=== PATIENT | female | born 1945 | race Caucasian/White ===

== ENCOUNTER 2025-05-31 13:00 | Outpatient (RCR) | payer MEDICARE, SELFPAY ==
--- NOTE | 2025-03-01 16:31 | PT.OIE ---
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) Visit Care Team Role Provider Type DEIRDRE Sánchez Attending Provider Non-Staff Family Provider Primary Care Provider Referring Provider Specialty: Family Practice Address: [address] [place] [address], [place], [address] Email: Physical Therapy Initial Evaluation PT-OP-A Visit Information Start: 03/01/25 10:16 Freq: Status: Active Protocol: Document 03/01/25 10:45 LFG (Rec: 03/01/25 10:17 LFG [id number]) Out-Patient Physical Therapy Visit Information Visit Information Visit Type Initial Evaluation Visit Start Time 10:45 Visit Stop Time 12:12 Visit Number 1 Evaluation Information Evaluation Date 03/01/25 Precautions Precautions Right shoulder rotator cuff tear suspected PT-OP-B Current Condition Start: 03/01/25 10:16 Freq: Status: Active Protocol: Document 03/01/25 10:45 LFG (Rec: 03/01/25 10:19 LFG [id number]) Current Condition History of Current Condition Onset Date 1999 Current Complaints Lymphedema exacerbation History of Current Lymphedema symptoms started to come on the same year as Condition the mastectomy in 1999, did the whole bandaging/ wrapping including fingers. A couple years after she got a scape on the top of the hand knuckle resulting in elbow pain and then started getting weird, went to [facility] to get checked out which resulted in an infection that she had to be hospitalized for. Since then lymphedema symptoms have been under control until the last couple of years, has had a couple of falls resulting in shoulder problems which she has been doing PT since Oct. Shoulder wasn't getting better and swelling has been worsening. Got her compression garments at [facility] in [place]. 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 Lived in [facility] for 48 yrs, and still have PCP and doctors visit in [place]. Taught to self bandage but has not done it years, or sure if all bandages are in her possession. Has tried minimal self MFD, but reports having complaints of doing it properly and reaching hard to reach areas. Prior Treatments and Post Mastectomy January 2000 Tests Multipe lymph nodes removed Left lumpectomy/breast reconstruction 24' Future Testing and Mild AC joint OA Rotator cuff tendinopathy Treatments Planned Developmental History Developmental Lymphedema History Mild AC joint OA Rotator cuff tendinopathy Rotator cuff tear suspected Treatment Goals Patient/Caregiver Reduce lymphedema swelling to allow to resume PT for Goals her shoulder PT-OP-C Subjective Start: 03/01/25 10:16 Freq: Status: Active Protocol: Document 03/01/25 10:45 LFG (Rec: 03/01/25 10:17 LFG [id number]) OP-PT Subjective Patient Comments Patient Comments Had to stop PT for shoulder due to the swelling in the arm worsening PT-OP-F Manual Assessment Start: 03/01/25 10:16 Freq: Status: Active Protocol: Document 03/01/25 10:45 LFG (Rec: 03/01/25 11:37 LFG [id number]) Manual Assessments Soft Tissue Assessment Soft Tissue Mobility R masectomy scar rigid/stiff Assessment PT-OP-K Range of Motion Start: 03/01/25 10:16 Freq: Status: Active Protocol: Document 03/01/25 10:45 LFG (Rec: 03/01/25 12:03 LFG [id number]) Shoulder Goniometric Range of Motion Shoulder Right Internal Rotation upper lumber, lower thoracic with pain Behind Back (text) Comments General Screening Flexion/Abduction/ER all w/ normal limits Left Internal Rotation mid thoracic scapula Behind Back (text) Comments General Screening Flexion/Abduction/ER all w/ functional limits but all movements cause pain PT-OP-N Lymphedema Start: 03/01/25 10:16 Freq: Status: Active Protocol: Document 03/01/25 10:45 LFG (Rec: 03/01/25 11:10 LFG [id number]) Lymphedema Measurements Upper Extremity Circumference Measurements Right MCP 19.8 cm Dorsum of Hand 20.5 cm Wrist 16.7 cm 5 cm From Wrist 20.5 cm Crease 10 cm From Wrist 23 cm Crease 15 cm From Wrist 26 cm Crease 20 cm From Wrist 29.1 cm Crease 25 cm From Wrist 29 cm Crease 30 cm From Wrist 32.6 cm Crease 35 cm From Wrist 34.8 cm Crease 40 cm From Wrist 37.2 cm Crease 45 cm From Wrist 39.4 cm Crease Elbow Joint 29 cm - 50: 41.2 Left MCP 19.5 cm Dorsum of Hand 20 cm Wrist 17.3 cm 5 cm From Wrist 20.6 cm Crease 10 cm From Wrist 24 cm Crease 15 cm From Wrist 28 cm Crease 20 cm From Wrist 29.9 cm Crease 25 cm From Wrist 29.4 cm Crease 30 cm From Wrist 33 cm Crease 35 cm From Wrist 35.4 cm Crease 40 cm From Wrist 37.5 cm Crease 45 cm From Wrist 38 cm Crease Elbow Joint 29.4 cm - 50: 39.2 PT-OP-Q Treatments Start: 03/01/25 10:16 Freq: Status: Active Protocol: Document 03/01/25 10:45 LFG (Rec: 03/01/25 11:10 LFG [id number]) Manual Therapy Treatment Consent Patient gave verbal Yes consent for manual treatment Lymphedema Treatment Manual Lymphatic Drainage Location R UE lymphedema Lymphedema Wrapping Body Location R UE Materials bandaging Patient Education Lymphedema Pathology Instructed using visual aide, anatomy overview Lymphedema instructed Prevention Lymphedema instructed Precautions Compression Garments instructed, evaluted patient garments Self Manual instructed and given online resource Lymphatic Drainage Sequential as above Lymphedema Exercises PT-OP-T Assessment and Plan Start: 03/01/25 10:16 Freq: Status: Active Protocol: Document 03/01/25 10:45 LFG (Rec: 03/01/25 12:07 LFG [id number]) Physical Therapy Assessment Evaluation Complexity Number of Personal 3 or More Factors/ Comorbidities Number of Body 3 Systems Impaired Clinical Evolving Presentation at Evaluation Impairments Impairments Edema,Functional Mobility,Soft Tissue Mobility Goals Three Impairment impaired soft tissue mobility of mastectomy scar Long-Term Goal (LTG) Improve soft tissue mobility of scar tissue to improve lymphatic flow LTG Duration 05/18/25 Two Impairment lymphedema life impact scale 21% Curb Hop Goal (LTG) Decrease lymphedema life impact scale to no greater than 5% as measure of improved activity tolerance and quality of life LTG Duration 05/18/25 One Impairment lymphedema exacerbation right UE Short Term Goal (STG Patient will be instructed in all aspects of lymphedema ) self-care to include skin care, elevation, self- massage, self-bandaging/compression options, and lymphedema exercises. STG Duration 04/14/25 Long-Term Goal (LTG) Decrease patient?s lymphedema to a stable level (no increase or decrease greater than 1 cm over the course of 1 week), patient to be independent with all aspects of self-care for lymphedema, and will obtain appropriate compression garment for lymphedema management in the home. LTG Duration 05/18/25 Assessment Summary Assessment Patient presents to PT with long standing history with lymphedema after a post mastectomy 00' and having several lymph nodes removed. Lymphedema sxs were under control up until recently after experiencing some falls and having a suspect R rotator cuff tear that she was receiving PT for until lymphedema sxs progressively worsened. Circumferential measurement of bilateral UE reveal R UE to be larger than L UE. R mastectomy scar is stiff and rigid and may be contributing in addition to the insufficient lymphatic drainage. Patient was introduced to some MLD and finished the session with bandaging. Recommend remeasuring circumferences of bilateral UE's, working of scar tissue mobility and continuing MLD. Treatment plan will consist of complete decongestive therapy (CDT). POC discussed with patient and she was in agreement. Physical Therapy Plan Frequency and Duration Frequency of 20 Treatment Duration of 12 treatment (weeks) Plan of Care Start 03/01/25 Date Plan of Care End 05/18/25 Date Therapeutic Interventions Therapeutic Home Exercise Program,Lymphedema Management,Manual Interventions Therapy,Patient/Caregiver Education,Self-Care/Home Management,Soft Tissue Mobilization,Therapeutic Activities,Therapeutic Exercises Modalities Vasopneumatic Devices Next Visit Focus/Plan Next Note Type Treatment Note Next Visit Plan Continue complete decongestive therapy (CDT). Do trial with pneaumatic sequential pump
--- NOTE | 2025-03-01 16:32 | PT.OPPOC ---
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) Visit Care Team Role Provider Type DEIRDRE Sánchez Attending Provider Non-Staff Family Provider Primary Care Provider Referring Provider Specialty: Family Practice Address: [address] [place] [address], [id number] Email: Plan Of Care PT-OP-B Current Condition Start: 03/01/25 10:16 Freq: Status: Active Protocol: Document 03/01/25 10:45 LFG (Rec: 03/01/25 10:19 LFG [id number]) Current Condition History of Current Condition Onset Date 1999 Current Complaints Lymphedema exacerbation History of Current Lymphedema symptoms started to come on the same year as Condition the mastectomy in 1999, did the whole bandaging/ wrapping including fingers. A couple years after she got a scape on the top of the hand knuckle resulting in elbow pain and then started getting weird, went to [facility] to get checked out which resulted in an infection that she had to be hospitalized for. Since then lymphedema symptoms have been under control until the last couple of years, has had a couple of falls resulting in shoulder problems which she has been doing PT since Oct. Shoulder wasn't getting better and swelling has been worsening. Got her compression garments at [facility] in [place]. 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 Lived in [facility] for 48 yrs, and still have PCP and doctors visit in [place]. Taught to self bandage but has not done it years, or sure if all bandages are in her possession. Has tried minimal self MFD, but reports having complaints of doing it properly and reaching hard to reach areas. Prior Treatments and Post Mastectomy January 2000 Tests Multipe lymph nodes removed Left lumpectomy/breast reconstruction ' Future Testing and Mild AC joint OA Rotator cuff tendinopathy Treatments Planned Developmental History Developmental Lymphedema History Mild AC joint OA Rotator cuff tendinopathy Rotator cuff tear suspected Treatment Goals Patient/Caregiver Reduce lymphedema swelling to allow to resume PT for Goals her shoulder PT-OP-T Assessment and Plan Start: 03/01/25 10:16 Freq: Status: Active Protocol: Document 03/01/25 10:45 LFG (Rec: 03/01/25 12:07 LFG [id number]) Physical Therapy Assessment Evaluation Complexity Number of Personal 3 or More Factors/ Comorbidities Number of Body 3 Systems Impaired Clinical Evolving Presentation at Evaluation Impairments Impairments Edema,Functional Mobility,Soft Tissue Mobility Goals Three Impairment impaired soft tissue mobility of mastectomy scar Franchise Field Consultant Goal (LTG) Improve soft tissue mobility of scar tissue to improve lymphatic flow LTG Duration 05/18/25 Two Impairment lymphedema life impact scale 21% Franchise Field Consultant Goal (LTG) Decrease lymphedema life impact scale to no greater than 5% as measure of improved activity tolerance and quality of life LTG Duration 05/18/25 One Impairment lymphedema exacerbation right UE Short Term Goal (STG Patient will be instructed in all aspects of lymphedema ) self-care to include skin care, elevation, self- massage, self-bandaging/compression options, and lymphedema exercises. STG Duration 04/14/25 Franchise Field Consultant Goal (LTG) Decrease patient?s lymphedema to a stable level (no increase or decrease greater than 1 cm over the course of 1 week), patient to be independent with all aspects of self-care for lymphedema, and will obtain appropriate compression garment for lymphedema management in the home. LTG Duration 05/18/25 Assessment Summary Assessment Patient presents to PT with long standing history with lymphedema after a post mastectomy 00' and having several lymph nodes removed. Lymphedema sxs were under control up until recently after experiencing some falls and having a suspect R rotator cuff tear that she was receiving PT for until lymphedema sxs progressively worsened. Circumferential measurement of bilateral UE reveal R UE to be larger than L UE. R mastectomy scar is stiff and rigid and may be contributing in addition to the insufficient lymphatic drainage. Patient was introduced to some MLD and finished the session with bandaging. Recommend remeasuring circumferences of bilateral UE's, working of scar tissue mobility and continuing MLD. Treatment plan will consist of complete decongestive therapy (CDT). POC discussed with patient and she was in agreement. Physical Therapy Plan Frequency and Duration Frequency of 20 Treatment Duration of 12 treatment (weeks) Plan of Care Start 03/01/25 Date Plan of Care End 05/18/25 Date Therapeutic Interventions Therapeutic Home Exercise Program,Lymphedema Management,Manual Interventions Therapy,Patient/Caregiver Education,Self-Care/Home Management,Soft Tissue Mobilization,Therapeutic Activities,Therapeutic Exercises Modalities Vasopneumatic Devices Next Visit Focus/Plan Next Note Type Treatment Note Next Visit Plan Continue complete decongestive therapy (CDT). Do trial with pneaumatic sequential pump Plan of Care Dates Plan of Care Start Date 03/01/25 Plan of Care End Date 05/18/25 Electronically Signed by: Anshul Gonzales, PT 03/01/25 [id number] If you are in agreement with this Plan of Care, please return a signed and dated copy. I have reviewed this Plan of Care and certify that the skilled therapy services above are required to meet the patient?s needs. Physician Signature Date Printed Name and Credentials Clinical Instructor Signature Printed Name and Credentials
--- NOTE | 2025-03-03 16:59 | PT.OTN ---
Current Diagnoses Postmastectomy lymphedema syndrome (03/03/25) Physical Therapy Treatment Note PT-OP-A Visit Information Start: 03/01/25 10:16 Freq: Status: Active Protocol: Document 03/03/25 10:45 SAK (Rec: 03/03/25 10:55 SAK Laptop) Out-Patient Physical Therapy Visit Information Visit Information Visit Type Treatment Note Visit Start Time 10:46 Visit Stop Time 12:11 Visit Number 2 Evaluation Information Evaluation Date 03/01/25 Precautions Precautions Right shoulder rotator cuff tear suspected PT-OP-B Current Condition Start: 03/01/25 10:16 Freq: Status: Active Protocol: Document 03/03/25 10:45 SAK (Rec: 03/03/25 10:55 SAK Laptop) Current Condition History of Current Condition Onset Date 1999 Current Complaints Lymphedema exacerbation History of Current Lymphedema symptoms started to come on the same year as Condition the mastectomy in 1999, did the whole bandaging/ wrapping including fingers. A couple years after she got a scape on the top of the hand knuckle resulting in elbow pain and then started getting weird, went to [facility] to get checked out which resulted in an infection that she had to be hospitalized for. Since then lymphedema symptoms have been under control until the last couple of years, has had a couple of falls resulting in shoulder problems which she has been doing PT since Oct. Shoulder wasn't getting better and swelling has been worsening. Got her compression garments at [facility] in [place]. 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 Lived in [facility] for 48 yrs, and still have PCP and doctors visit in [place]. Taught to self bandage but has not done it years, or sure if all bandages are in her possession. Has tried minimal self MFD, but reports having complaints of doing it properly and reaching hard to reach areas. Lymphedema evident right UE, right subaxillary region and lateral and posterior trunk. Prior Treatments and Post Mastectomy January 2000 Tests Multipe lymph nodes removed Left lumpectomy/breast reconstruction 24' Future Testing and Mild AC joint OA Rotator cuff tendinopathy Treatments Planned Developmental History Developmental Lymphedema History Mild AC joint OA Rotator cuff tendinopathy Rotator cuff tear suspected Treatment Goals Patient/Caregiver Reduce lymphedema swelling to allow to resume PT for Goals her shoulder PT-OP-C Subjective Start: 03/01/25 10:16 Freq: Status: Active Protocol: Document 03/03/25 10:45 SAK (Rec: 03/03/25 11:04 SAK Laptop) OP-PT Subjective Patient Comments Patient Comments Left bandaging on 23 hrs, some soreness at elbow, felt size reduced. Bandaged self, not as effective. Has appointment with Bryon Flowers, agreed to go to [facility] same day for remeasuring/fitting for new garments (current 5 months old). PT-OP-F Manual Assessment Start: 03/01/25 10:16 Freq: Status: Active Protocol: Document 03/01/25 10:45 LFG (Rec: 03/01/25 11:37 LFG [id number]) Manual Assessments Soft Tissue Assessment Soft Tissue Mobility R masectomy scar rigid/stiff Assessment PT-OP-K Range of Motion Start: 03/01/25 10:16 Freq: Status: Active Protocol: Document 03/01/25 10:45 LFG (Rec: 03/01/25 12:03 LFG [id number]) Shoulder Goniometric Range of Motion Shoulder Right Internal Rotation upper lumber, lower thoracic with pain Behind Back (text) Comments General Screening Flexion/Abduction/ER all w/ normal limits Left Internal Rotation mid thoracic scapula Behind Back (text) Comments General Screening Flexion/Abduction/ER all w/ functional limits but all movements cause pain PT-OP-N Lymphedema Start: 03/01/25 10:16 Freq: Status: Active Protocol: Document 03/03/25 10:45 SAK (Rec: 03/03/25 11:02 SAK Laptop) Lymphedema Measurements Upper Extremity Circumference Measurements Right MCP 19.7 cm Dorsum of Hand 20.8 cm Wrist 17.8 cm 5 cm From Wrist 20.8 cm Crease 10 cm From Wrist 23.2 cm Crease 15 cm From Wrist 27 cm Crease 20 cm From Wrist 29.2 cm Crease 25 cm From Wrist 29 cm Crease 30 cm From Wrist 33 cm Crease 35 cm From Wrist 35.2 cm Crease 40 cm From Wrist 37 cm Crease Elbow Joint 29 cm - 50: 38 PT-OP-Q Treatments Start: 03/01/25 10:16 Freq: Status: Active Protocol: Document 03/01/25 10:45 LFG (Rec: 03/01/25 11:10 LFG [id number]) Manual Therapy Treatment Consent Patient gave verbal Yes consent for manual treatment Lymphedema Treatment Manual Lymphatic Drainage Location R UE lymphedema Lymphedema Wrapping Body Location R UE Materials bandaging Patient Education Lymphedema Pathology Instructed using visual aide, anatomy overview Lymphedema instructed Prevention Lymphedema instructed Precautions Compression Garments instructed, evaluted patient garments Self Manual instructed and given online resource Lymphatic Drainage Sequential as above Lymphedema Exercises PT-OP-T Assessment and Plan Start: 03/01/25 10:16 Freq: Status: Active Protocol: Document 03/03/25 10:45 SAK (Rec: 03/03/25 10:55 SAK Laptop) Physical Therapy Assessment Impairments Impairments Edema,Functional Mobility,Soft Tissue Mobility Goals Three Impairment impaired soft tissue mobility of mastectomy scar Diesel Bus Mechanic Goal (LTG) Improve soft tissue mobility of scar tissue to improve lymphatic flow LTG Duration 05/18/25 Two Impairment lymphedema life impact scale 21% Diesel Bus Mechanic Goal (LTG) Decrease lymphedema life impact scale to no greater than 5% as measure of improved activity tolerance and quality of life LTG Duration 05/18/25 One Impairment lymphedema exacerbation right UE Short Term Goal (STG Patient will be instructed in all aspects of lymphedema ) self-care to include skin care, elevation, self- massage, self-bandaging/compression options, and lymphedema exercises. STG Duration 04/14/25 Diesel Bus Mechanic Goal (LTG) Decrease patient?s lymphedema to a stable level (no increase or decrease greater than 1 cm over the course of 1 week), patient to be independent with all aspects of self-care for lymphedema, and will obtain appropriate compression garment for lymphedema management in the home. LTG Duration 05/18/25 Assessment Summary Assessment Patient not able to bandage adequately for reduction first trial, will continue to practice. Reported decrease in edema after PT bandaging but after self bandaging no dec, some inc. Continued CDT today including trial Airos 6 pneumatic compression pump with Arm Plus garment which includes trunk due to patient subaxillary edema. Reviewed video self MLD with patient with cues for technique during sequential pneumatic pump. Physical Therapy Plan Frequency and Duration Frequency of 20 Treatment Duration of 12 treatment (weeks) Plan of Care Start 03/01/25 Date Plan of Care End 05/18/25 Date Therapeutic Interventions Therapeutic Home Exercise Program,Lymphedema Management,Manual Interventions Therapy,Patient/Caregiver Education,Self-Care/Home Management,Soft Tissue Mobilization,Therapeutic Activities,Therapeutic Exercises Modalities Vasopneumatic Devices Next Visit Focus/Plan Next Note Type Treatment Note Next Visit Plan Continue complete decongestive therapy (CDT), bandaging end of treatment. Review HEP (modified due to shoulder pain and dysfunction from likely RC tear).
--- NOTE | 2025-03-09 12:27 | PT.OTN ---
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) Physical Therapy Treatment Note PT-OP-A Visit Information Start: 03/01/25 10:16 Freq: Status: Active Protocol: Document 03/09/25 10:28 AB (Rec: 03/09/25 11:08 AB [id number]) Out-Patient Physical Therapy Visit Information Visit Information Visit Type Treatment Note Visit Start Time 10:46 Visit Stop Time 12:22 Visit Number 3 Number of HELPER DRIVER Visits 1 Evaluation Information Evaluation Date 03/01/25 Precautions Precautions Right shoulder rotator cuff tear suspected PT-OP-B Current Condition Start: 03/01/25 10:16 Freq: Status: Active Protocol: Document 03/03/25 10:45 SAK (Rec: 03/03/25 10:55 SAK Laptop) Current Condition History of Current Condition Onset Date 1999 Current Complaints Lymphedema exacerbation History of Current Lymphedema symptoms started to come on the same year as Condition the mastectomy in 1999, did the whole bandaging/ wrapping including fingers. A couple years after she got a scape on the top of the hand knuckle resulting in elbow pain and then started getting weird, went to [facility] to get checked out which resulted in an infection that she had to be hospitalized for. Since then lymphedema symptoms have been under control until the last couple of years, has had a couple of falls resulting in shoulder problems which she has been doing PT since Oct. Shoulder wasn't getting better and swelling has been worsening. Got her compression garments at [facility] [place]. 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 Lived in [facility] for 48 yrs, and still have PCP and doctors visit in [place]. Taught to self bandage but has not done it years, or sure if all bandages are in her possession. Has tried minimal self MFD, but reports having complaints of doing it properly and reaching hard to reach areas. Lymphedema evident right UE, right subaxillary region and lateral and posterior trunk. Prior Treatments and Post Mastectomy January 2000 Tests Multipe lymph nodes removed Left lumpectomy/breast reconstruction 24' Future Testing and Mild AC joint OA Rotator cuff tendinopathy Treatments Planned Developmental History Developmental Lymphedema History Mild AC joint OA Rotator cuff tendinopathy Rotator cuff tear suspected Treatment Goals Patient/Caregiver Reduce lymphedema swelling to allow to resume PT for Goals her shoulder PT-OP-C Subjective Start: 03/01/25 10:16 Freq: Status: Active Protocol: Document 03/09/25 10:28 AB (Rec: 03/09/25 11:08 AB [id number]) OP-PT Subjective Patient Comments Patient Comments Patient reports she is not doing well with bandaging, reports bunching at wrist, the loose proximal forearm. Patient reports Appt for new garments is next Friday. PT-OP-F Manual Assessment Start: 03/01/25 10:16 Freq: Status: Active Protocol: Document 03/01/25 10:45 LFG (Rec: 03/01/25 11:37 LFG [id number]) Manual Assessments Soft Tissue Assessment Soft Tissue Mobility R masectomy scar rigid/stiff Assessment PT-OP-K Range of Motion Start: 03/01/25 10:16 Freq: Status: Active Protocol: Document 03/01/25 10:45 LFG (Rec: 03/01/25 12:03 LFG [id number]) Shoulder Goniometric Range of Motion Shoulder Right Internal Rotation upper lumber, lower thoracic with pain Behind Back (text) Comments General Screening Flexion/Abduction/ER all w/ normal limits Left Internal Rotation mid thoracic scapula Behind Back (text) Comments General Screening Flexion/Abduction/ER all w/ functional limits but all movements cause pain PT-OP-N Lymphedema Start: 03/01/25 10:16 Freq: Status: Active Protocol: Document 03/09/25 10:28 AB (Rec: 03/09/25 11:08 AB [id number]) Lymphedema Measurements Upper Extremity Circumference Measurements Right MCP 19.5 cm Dorsum of Hand 21.6 cm Wrist 17.2 cm 5 cm From Wrist 19.8 cm Crease 10 cm From Wrist 23.2 cm Crease 15 cm From Wrist 27.2 cm Crease 20 cm From Wrist 29.4 cm Crease 25 cm From Wrist 29.1 cm Crease 30 cm From Wrist 33.2 cm Crease 35 cm From Wrist 36.2 cm Crease 40 cm From Wrist 37.3 cm Crease 45 cm From Wrist 39.5 cm Crease Elbow Joint 29.2 cm - 50 cm 41.2 cm PT-OP-Q Treatments Start: 03/01/25 10:16 Freq: Status: Active Protocol: Document 03/09/25 10:28 AB (Rec: 03/09/25 11:08 AB [id number]) Lymphedema Treatment Manual Lymphatic Drainage Location R UE lymphedema all drains, highways ant and post and R UE ant and post Comments also cleared axillary drain end of MLD Lymphedema Wrapping Body Location R UE Materials bandaging Sequential Lymphedema Exercises Location breathing from diaphragm, gripping, scap squeeze, X 8 Comments isomet flex and abd R sh X 3 9 very gentle and shoulder shrug and depression X 5 bilaterally PT-OP-R Modalities Start: 03/01/25 10:16 Freq: Status: Active Protocol: Document 03/09/25 10:28 AB (Rec: 03/09/25 11:08 AB [id number]) Compression Pump Treatment Treatment Location R UE Treatment Comments Airos 6 pneumatic compression pump with Arm Plus garment which includes trunk X 11 min pressure to 40, Patient reports UE became uncomfortable at 11 min PT-OP-T Assessment and Plan Start: 03/01/25 10:16 Freq: Status: Active Protocol: Document 03/09/25 10:28 AB (Rec: 03/09/25 11:08 [id number]) Physical Therapy Assessment Goals Three Impairment impaired soft tissue mobility of mastectomy scar Automobile Detailer Goal (LTG) Improve soft tissue mobility of scar tissue to improve lymphatic flow LTG Duration 05/18/25 Two Impairment lymphedema life impact scale 21% [facility] Goal (LTG) Decrease lymphedema life impact scale to no greater than 5% as measure of improved activity tolerance and quality of life LTG Duration 05/18/25 One Impairment lymphedema exacerbation right UE Short Term Goal (STG Patient will be instructed in all aspects of lymphedema ) self-care to include skin care, elevation, self- massage, self-bandaging/compression options, and lymphedema exercises. STG Duration 04/14/25 [facility] Goal (LTG) Decrease patient?s lymphedema to a stable level (no increase or decrease greater than 1 cm over the course of 1 week), patient to be independent with all aspects of self-care for lymphedema, and will obtain appropriate compression garment for lymphedema management in the home. LTG Duration 05/18/25 Assessment Summary Assessment Decreased measures at MCP and 5 cm from wrist, increased or same for all other measures. Good shannan to gentle shoulder isometrics. Pump time limited by UE pain R UE. Physical Therapy Plan Frequency and Duration Frequency of 20 Treatment Duration of 12 treatment (weeks) Plan of Care Start 03/01/25 Date Plan of Care End 05/18/25 Date Next Visit Focus/Plan Next Note Type Treatment Note Next Visit Plan Continue complete decongestive therapy (CDT), bandaging end of treatment. Review HEP (modified due to shoulder pain and dysfunction from likely RC tear).
--- NOTE | 2025-03-11 12:28 | PT.OTN ---
Current Diagnoses Postmastectomy lymphedema syndrome (03/11/25) Physical Therapy Treatment Note PT-OP-A Visit Information Start: 03/01/25 10:16 Freq: Status: Active Protocol: Document 03/11/25 10:47 AB (Rec: 03/11/25 11:05 AB [id number]) Out-Patient Physical Therapy Visit Information Visit Information Visit Type Treatment Note Visit Start Time 10:47 Visit Stop Time 12:20 Visit Number 4 Number of ROVING TESTER [employer] Visits 1 Evaluation Information Evaluation Date 03/01/25 Precautions Precautions Right shoulder rotator cuff tear suspected PT-OP-B Current Condition Start: 03/01/25 10:16 Freq: Status: Active Protocol: Document 03/03/25 10:45 SAK (Rec: 03/03/25 10:55 SAK Laptop) Current Condition History of Current Condition Onset Date 1999 Current Complaints Lymphedema exacerbation History of Current Lymphedema symptoms started to come on the same year as Condition the mastectomy in 1999, did the whole bandaging/ wrapping including fingers. A couple years after she got a scape on the top of the hand knuckle resulting in elbow pain and then started getting weird, went to [facility] to get checked out which resulted in an infection that she had to be hospitalized for. Since then lymphedema symptoms have been under control until the last couple of years, has had a couple of falls resulting in shoulder problems which she has been doing PT since Oct. Shoulder wasn't getting better and swelling has been worsening. Got her compression garments at [facility] in [place]. 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 Lived in [facility] for 48 yrs, and still have PCP and doctors visit in [place]. Taught to self bandage but has not done it years, or sure if all bandages are in her possession. Has tried minimal self MFD, but reports having complaints of doing it properly and reaching hard to reach areas. Lymphedema evident right UE, right subaxillary region and lateral and posterior trunk. Prior Treatments and Post Mastectomy January 2000 Tests Multipe lymph nodes removed Left lumpectomy/breast reconstruction 24' Future Testing and Mild AC joint OA Rotator cuff tendinopathy Treatments Planned Developmental History Developmental Lymphedema History Mild AC joint OA Rotator cuff tendinopathy Rotator cuff tear suspected Treatment Goals Patient/Caregiver Reduce lymphedema swelling to allow to resume PT for Goals her shoulder PT-OP-C Subjective Start: 03/01/25 10:16 Freq: Status: Active Protocol: Document 03/11/25 10:47 AB (Rec: 03/11/25 11:05 AB [id number]) OP-PT Subjective Patient Comments Patient Comments Patient reports finger bandaging was too tight had to remove about 10:00, reports it was looking a little purply. PT-OP-F Manual Assessment Start: 03/01/25 10:16 Freq: Status: Active Protocol: Document 03/01/25 10:45 LFG (Rec: 03/01/25 11:37 LFG [id number]) Manual Assessments Soft Tissue Assessment Soft Tissue Mobility R masectomy scar rigid/stiff Assessment PT-OP-K Range of Motion Start: 03/01/25 10:16 Freq: Status: Active Protocol: Document 03/01/25 10:45 LFG (Rec: 03/01/25 12:03 LFG [id number]) Shoulder Goniometric Range of Motion Shoulder Right Internal Rotation upper lumber, lower thoracic with pain Behind Back (text) Comments General Screening Flexion/Abduction/ER all w/ normal limits Left Internal Rotation mid thoracic scapula Behind Back (text) Comments General Screening Flexion/Abduction/ER all w/ functional limits but all movements cause pain PT-OP-N Lymphedema Start: 03/01/25 10:16 Freq: Status: Active Protocol: Document 03/11/25 10:47 AB (Rec: 03/11/25 11:05 AB [id number]) Lymphedema Measurements Upper Extremity Circumference Measurements Right MCP 19.4 cm Dorsum of Hand 19.9 cm Wrist 16.5 cm 5 cm From Wrist 19.8 cm Crease 10 cm From Wrist 23.1 cm Crease 15 cm From Wrist 26.6 cm Crease 20 cm From Wrist 29.4 cm Crease 25 cm From Wrist 29.2 cm Crease 30 cm From Wrist 32.6 cm Crease 35 cm From Wrist 36.1 cm Crease 40 cm From Wrist 36.5 cm Crease 45 cm From Wrist 38.6 cm Crease Elbow Joint 28.6 cm - 50 cm 39.9 cm PT-OP-Q Treatments Start: 03/01/25 10:16 Freq: Status: Active Protocol: Document 03/11/25 10:47 AB (Rec: 03/11/25 11:05 [id number]) Lymphedema Treatment Manual Lymphatic Drainage Location R UE lymphedema all drains, highways ant and post and R UE ant and post Lymphedema Wrapping Body Location R UE Materials bandaging fingers, artiflex, 4 cm 6 cm and 11 cm Comprilan, pad for post hand into wrist area. Sequential Lymphedema Exercises Location breathing from diaphragm, gripping, scap squeeze, X 8, Yulissa flex ext, abd Comments X 10 Patient Education Lymphedema Pathology Instructed using visual aide, anatomy overview Lymphedema instructed Prevention Lymphedema instructed Precautions Compression Garments instructed, evaluted patient garments Self Manual instructed and given online resource Lymphatic Drainage Sequential as above Lymphedema Exercises PT-OP-R Modalities Start: 03/01/25 10:16 Freq: Status: Active Protocol: Document 03/11/25 10:47 AB (Rec: 03/11/25 11:05 [id number]) Compression Pump Treatment Treatment Location R UE Treatment Comments Airos 6 pneumatic compression pump with Arm Plus garment which includes trunk X 15 min pressure to 35 PT-OP-T Assessment and Plan Start: 03/01/25 10:16 Freq: Status: Active Protocol: Document 03/11/25 10:47 AB (Rec: 03/11/25 11:05 [id number]) Physical Therapy Assessment Goals Three Impairment impaired soft tissue mobility of mastectomy scar Primary Teaching Assistant Goal (LTG) Improve soft tissue mobility of scar tissue to improve lymphatic flow LTG Duration 05/18/25 Two Impairment lymphedema life impact scale 21% Jail Goal (LTG) Decrease lymphedema life impact scale to no greater than 5% as measure of improved activity tolerance and quality of life LTG Duration 05/18/25 One Impairment lymphedema exacerbation right UE Short Term Goal (STG Patient will be instructed in all aspects of lymphedema ) self-care to include skin care, elevation, self- massage, self-bandaging/compression options, and lymphedema exercises. STG Duration 04/14/25 Jail Goal (LTG) Decrease patient?s lymphedema to a stable level (no increase or decrease greater than 1 cm over the course of 1 week), patient to be independent with all aspects of self-care for lymphedema, and will obtain appropriate compression garment for lymphedema management in the home. LTG Duration 05/18/25 Assessment Summary Assessment Patient into session with mostly improved measures R UE one inc in one measurement of one MM. and 4 areas of same measurements. Good shannan to pump at 35 for X 15 min Physical Therapy Plan Frequency and Duration Frequency of 20 Treatment Duration of 12 treatment (weeks) Plan of Care Start 03/01/25 Date Plan of Care End 05/18/25 Date Next Visit Focus/Plan Next Note Type Treatment Note Next Visit Plan Continue complete decongestive therapy (CDT), bandaging end of treatment. Review HEP (modified due to shoulder pain and dysfunction from likely RC tear).
--- NOTE | 2025-03-30 10:15 | PT.OTN ---
Current Diagnoses Postmastectomy lymphedema syndrome (03/30/25) Physical Therapy Treatment Note PT-OP-A Visit Information Start: 03/01/25 10:16 Freq: Status: Active Protocol: Document 03/30/25 07:22 AB (Rec: 03/30/25 07:55 AB [id number]) Out-Patient Physical Therapy Visit Information Visit Information Visit Type Treatment Note Visit Start Time 07:35 Visit Stop Time 09:05 Visit Number 5 Number of SHIRT MAKER Visits 3 Evaluation Information Evaluation Date 03/01/25 Precautions Precautions Right shoulder rotator cuff tear suspected PT-OP-B Current Condition Start: 03/01/25 10:16 Freq: Status: Active Protocol: Document 03/03/25 10:45 SAK (Rec: 03/03/25 10:55 SAK Laptop) Current Condition History of Current Condition Onset Date 1999 Current Complaints Lymphedema exacerbation History of Current Lymphedema symptoms started to come on the same year as Condition the mastectomy in 1999, did the whole bandaging/ wrapping including fingers. A couple years after she got a scape on the top of the hand knuckle resulting in elbow pain and then started getting weird, went to [facility] to get checked out which resulted in an infection that she had to be hospitalized for. Since then lymphedema symptoms have been under control until the last couple of years, has had a couple of falls resulting in shoulder problems which she has been doing PT since Oct. Shoulder wasn't getting better and swelling has been worsening. Got her compression garments at [facility] in [place]. 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 Lived in [facility] for 48 yrs, and still have PCP and doctors visit in [place]. Taught to self bandage but has not done it years, or sure if all bandages are in her possession. Has tried minimal self MFD, but reports having complaints of doing it properly and reaching hard to reach areas. Lymphedema evident right UE, right subaxillary region and lateral and posterior trunk. Prior Treatments and Post Mastectomy January 2000 Tests Multipe lymph nodes removed Left lumpectomy/breast reconstruction 24' Future Testing and Mild AC joint OA Rotator cuff tendinopathy Treatments Planned Developmental History Developmental Lymphedema History Mild AC joint OA Rotator cuff tendinopathy Rotator cuff tear suspected Treatment Goals Patient/Caregiver Reduce lymphedema swelling to allow to resume PT for Goals her shoulder PT-OP-C Subjective Start: 03/01/25 10:16 Freq: Status: Active Protocol: Document 03/30/25 07:22 AB (Rec: 03/30/25 07:55 AB [id number]) OP-PT Subjective Patient Comments Patient Comments Patient reports wrapping off and on, thinks it is going pretty well. Patient reports the exercises do help, but the shoulder pain is not eliminated PT-OP-F Manual Assessment Start: 03/01/25 10:16 Freq: Status: Active Protocol: Document 03/01/25 10:45 LFG (Rec: 03/01/25 11:37 LFG [id number]) Manual Assessments Soft Tissue Assessment Soft Tissue Mobility R masectomy scar rigid/stiff Assessment PT-OP-K Range of Motion Start: 03/01/25 10:16 Freq: Status: Active Protocol: Document 03/01/25 10:45 LFG (Rec: 03/01/25 12:03 LFG [id number]) Shoulder Goniometric Range of Motion Shoulder Right Internal Rotation upper lumber, lower thoracic with pain Behind Back (text) Comments General Screening Flexion/Abduction/ER all w/ normal limits Left Internal Rotation mid thoracic scapula Behind Back (text) Comments General Screening Flexion/Abduction/ER all w/ functional limits but all movements cause pain PT-OP-N Lymphedema Start: 03/01/25 10:16 Freq: Status: Active Protocol: Document 03/30/25 07:22 AB (Rec: 03/30/25 07:55 AB [id number]) Lymphedema Measurements Upper Extremity Circumference Measurements Right MCP 19.2 cm Dorsum of Hand 20.6 cm Wrist 16.5 cm 5 cm From Wrist 19.6 cm Crease 10 cm From Wrist 23.1 cm Crease 15 cm From Wrist 27.1 cm Crease 20 cm From Wrist 29.4 cm Crease 25 cm From Wrist 29.4 cm Crease 30 cm From Wrist 31.6 cm Crease 35 cm From Wrist 34.4 cm Crease 40 cm From Wrist 36.6 cm Crease 45 cm From Wrist 39 cm Crease Elbow Joint 28.9 cm - 50 cm 39.5 cm PT-OP-Q Treatments Start: 03/01/25 10:16 Freq: Status: Active Protocol: Document 03/30/25 07:22 AB (Rec: 03/30/25 07:55 AB [id number]) Manual Therapy Treatment Consent Patient gave verbal Yes consent for manual treatment Soft Tissue Mobilization R pec Mobilization Type Cross-Friction,Rolling Intensity/Depth Moderate Body Position Hooklying Lymphedema Treatment Manual Lymphatic Drainage Location R UE lymphedema all drains, highways ant and post and R UE ant and post Lymphedema Wrapping Body Location R UE Materials bandaging fingers, hand to axilla artiflex, 4 cm 6 cm and 11 cm Comprilan, pad for post hand into wrist area. Sequential Lymphedema Exercises Location breathing from diaphragm, gripping, scap squeeze, X 10 , Yulissa flex ext, abd Comments X 10 X2 for scap squeeze, shoulder isomet ext abnd and flex, finger abd and add PT-OP-R Modalities Start: 03/01/25 10:16 Freq: Status: Active Protocol: Document 03/30/25 07:22 AB (Rec: 03/30/25 07:55 AB [id number]) Compression Pump Treatment Treatment Location R UE Treatment Comments Airos 6 pneumatic compression pump with Arm Plus garment which includes trunk X 10 min pressure to 35 PT-OP-T Assessment and Plan Start: 03/01/25 10:16 Freq: Status: Active Protocol: Document 03/30/25 07:22 AB (Rec: 03/30/25 07:55 AB [id number]) Physical Therapy Assessment Goals Three Impairment impaired soft tissue mobility of mastectomy scar Stable Helper Goal (LTG) Improve soft tissue mobility of scar tissue to improve lymphatic flow LTG Duration 05/18/25 Two Impairment lymphedema life impact scale 21% Stable Helper Goal (LTG) Decrease lymphedema life impact scale to no greater than 5% as measure of improved activity tolerance and quality of life LTG Duration 05/18/25 One Impairment lymphedema exacerbation right UE Short Term Goal (STG Patient will be instructed in all aspects of lymphedema ) self-care to include skin care, elevation, self- massage, self-bandaging/compression options, and lymphedema exercises. STG Duration 04/14/25 [facility] Goal (LTG) Decrease patient?s lymphedema to a stable level (no increase or decrease greater than 1 cm over the course of 1 week), patient to be independent with all aspects of self-care for lymphedema, and will obtain appropriate compression garment for lymphedema management in the home. LTG Duration 05/18/25 Assessment Summary Assessment R UE 6 areas with increased measurements 5 areas with decreased measurements, the rest with no change R UE. Patient ed to increase frequency of bandaging. R pec stiffness persists. Physical Therapy Plan Frequency and Duration Frequency of 20 Treatment Duration of 12 treatment (weeks) Plan of Care Start 03/01/25 Date Plan of Care End 05/18/25 Date Next Visit Focus/Plan Next Note Type Progress Note Next Visit Plan Continue complete decongestive therapy (CDT), bandaging end of treatment. Review HEP (modified due to shoulder pain and dysfunction from likely RC tear). Dec pump pressure to 30 due to patient reported discomfort as pump sleeve was being removed last session.
--- NOTE | 2025-04-01 10:50 | PT.OTN ---
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) Physical Therapy Treatment Note PT-OP-A Visit Information Start: 03/01/25 10:16 Freq: Status: Active Protocol: Document 04/01/25 09:03 AB (Rec: 04/01/25 09:49 AB [id number]) Out-Patient Physical Therapy Visit Information Visit Information Visit Type Treatment Note Visit Start Time 09:03 Visit Stop Time 10:37 Visit Number 6 Number of SALES EXPERT Visits 4 PT-OP-B Current Condition Start: 03/01/25 10:16 Freq: Status: Active Protocol: Document 03/03/25 10:45 SAK (Rec: 03/03/25 10:55 SAK Laptop) Current Condition History of Current Condition Onset Date 1999 Current Complaints Lymphedema exacerbation History of Current Lymphedema symptoms started to come on the same year as Condition the mastectomy in 1999, did the whole bandaging/ wrapping including fingers. A couple years after she got a scape on the top of the hand knuckle resulting in elbow pain and then started getting weird, went to [facility] to get checked out which resulted in an infection that she had to be hospitalized for. Since then lymphedema symptoms have been under control until the last couple of years, has had a couple of falls resulting in shoulder problems which she has been doing PT since Oct. Shoulder wasn't getting better and swelling has been worsening. Got her compression garments at [facility] in [place]. 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 Lived in [facility] for 48 yrs, and still have PCP and doctors visit in [place]. Taught to self bandage but has not done it years, or sure if all bandages are in her possession. Has tried minimal self MFD, but reports having complaints of doing it properly and reaching hard to reach areas. Lymphedema evident right UE, right subaxillary region and lateral and posterior trunk. Prior Treatments and Post Mastectomy January 2000 Tests Multipe lymph nodes removed Left lumpectomy/breast reconstruction 24' Future Testing and Mild AC joint OA Rotator cuff tendinopathy Treatments Planned Developmental History Developmental Lymphedema History Mild AC joint OA Rotator cuff tendinopathy Rotator cuff tear suspected Treatment Goals Patient/Caregiver Reduce lymphedema swelling to allow to resume PT for Goals her shoulder PT-OP-C Subjective Start: 03/01/25 10:16 Freq: Status: Active Protocol: Document 04/01/25 09:03 AB (Rec: 04/01/25 09:49 AB [id number]) OP-PT Subjective Patient Comments Patient Comments Patient reports increased R UE soreness, gestures to forearm post previous session attributes to the pump. PT-OP-F Manual Assessment Start: 03/01/25 10:16 Freq: Status: Active Protocol: Document 03/01/25 10:45 LFG (Rec: 03/01/25 11:37 LFG [id number]) Manual Assessments Soft Tissue Assessment Soft Tissue Mobility R masectomy scar rigid/stiff Assessment PT-OP-K Range of Motion Start: 03/01/25 10:16 Freq: Status: Active Protocol: Document 03/01/25 10:45 LFG (Rec: 03/01/25 12:03 LFG [id number]) Shoulder Goniometric Range of Motion Shoulder Right Internal Rotation upper lumber, lower thoracic with pain Behind Back (text) Comments General Screening Flexion/Abduction/ER all w/ normal limits Left Internal Rotation mid thoracic scapula Behind Back (text) Comments General Screening Flexion/Abduction/ER all w/ functional limits but all movements cause pain PT-OP-N Lymphedema Start: 03/01/25 10:16 Freq: Status: Active Protocol: Document 04/01/25 09:03 AB (Rec: 04/01/25 09:49 AB [id number]) Lymphedema Measurements Upper Extremity Circumference Measurements Right MCP 19.2 cm Dorsum of Hand 20.6 cm Wrist 16.5 cm 5 cm From Wrist 19.6 cm Crease 10 cm From Wrist 23.3 cm Crease 15 cm From Wrist 26 cm Crease 20 cm From Wrist 29 cm Crease 25 cm From Wrist 28.8 cm Crease 30 cm From Wrist 31.6 cm Crease 35 cm From Wrist 35 cm Crease 40 cm From Wrist 36.4 cm Crease 45 cm From Wrist 38.5 cm Crease Elbow Joint 28.6 cm - 50 cm 38.7 cm PT-OP-Q Treatments Start: 03/01/25 10:16 Freq: Status: Active Protocol: Document 04/01/25 09:03 AB (Rec: 04/01/25 09:49 AB [id number]) Manual Therapy Treatment Consent Patient gave verbal Yes consent for manual treatment Soft Tissue Mobilization R pec Mobilization Type Cross-Friction,Rolling Intensity/Depth Moderate Body Position Hooklying Lymphedema Treatment Manual Lymphatic Drainage Location R UE lymphedema all drains, highways ant and post and R UE ant and post Lymphedema Wrapping Body Location R UE Materials bandaging fingers, hand to axilla artiflex, 4 cm 6 cm and 11 cm Comprilan, pad for post hand into wrist area. Sequential Lymphedema Exercises Location breathing from diaphragm Duration X 15 for scap squeeze shoulder rolls, shoulder isomet ext abd and flex X8 Comments ER and IR X 3 PT-OP-R Modalities Start: 03/01/25 10:16 Freq: Status: Active Protocol: Document 04/01/25 09:03 AB (Rec: 04/01/25 09:49 AB [id number]) Compression Pump Treatment Treatment Location R UE Treatment Comments Airos 6 pneumatic compression pump with Arm Plus garment which includes trunk X 10 min pressure to 30 PT-OP-T Assessment and Plan Start: 03/01/25 10:16 Freq: Status: Active Protocol: Document 04/01/25 09:03 AB (Rec: 04/01/25 09:49 AB [id number]) Physical Therapy Assessment Goals Three Impairment impaired soft tissue mobility of mastectomy scar Squirrel Worker Goal (LTG) Improve soft tissue mobility of scar tissue to improve lymphatic flow LTG Duration 05/18/25 Two Impairment lymphedema life impact scale 21% Squirrel Worker Goal (LTG) Decrease lymphedema life impact scale to no greater than 5% as measure of improved activity tolerance and quality of life LTG Duration 05/18/25 One Impairment lymphedema exacerbation right UE Short Term Goal (STG Patient will be instructed in all aspects of lymphedema ) self-care to include skin care, elevation, self- massage, self-bandaging/compression options, and lymphedema exercises. STG Duration 04/14/25 Squirrel Worker Goal (LTG) Decrease patient?s lymphedema to a stable level (no increase or decrease greater than 1 cm over the course of 1 week), patient to be independent with all aspects of self-care for lymphedema, and will obtain appropriate compression garment for lymphedema management in the home. LTG Duration 05/18/25 Assessment Summary Assessment 6 areas decreased R UE one area increased all other the same. Increased tolerance to shoulder isometrics this session, but isometric IR painful only able to perform very light pressure and very limited reps. Patient ed to attempt band ex ( pt reported having bands, but not doing exercises for shoulder with bands) and if painful to stop and bring bands to next session. Physical Therapy Plan Frequency and Duration Frequency of 20 Treatment Duration of 12 treatment (weeks) Plan of Care Start 03/01/25 Date Plan of Care End 05/18/25 Date Next Visit Focus/Plan Next Note Type Progress Note Next Visit Plan Continue complete decongestive therapy (CDT), bandaging end of treatment. Review HEP (modified due to shoulder pain and dysfunction from likely RC tear). Possibly isometric reactive for shoulder ER and IR if nottolerating shoulder ER and IR with band at home.
--- NOTE | 2025-04-04 12:20 | PT.OTN ---
Current Diagnoses Postmastectomy lymphedema syndrome (04/04/25) Physical Therapy Treatment Note PT-OP-A Visit Information Start: 03/01/25 10:16 Freq: Status: Active Protocol: Document 04/04/25 10:43 SAK (Rec: 04/04/25 11:23 SAK Laptop) Out-Patient Physical Therapy Visit Information Visit Information Visit Type Treatment Note Visit Start Time 10:45 Visit Stop Time 12:15 Visit Number 6 Number of COMPUTER NETWORK AND SYSTEMS ENGINEER Visits 40 Evaluation Information Evaluation Date 03/01/25 Precautions Precautions Right shoulder rotator cuff tear suspected PT-OP-B Current Condition Start: 03/01/25 10:16 Freq: Status: Active Protocol: Document 04/04/25 10:43 SAK (Rec: 04/04/25 11:23 SAK Laptop) Current Condition History of Current Condition Onset Date 1999 Current Complaints Lymphedema exacerbation History of Current Lymphedema symptoms started to come on the same year as Condition the mastectomy in 1999, did the whole bandaging/ wrapping including fingers. A couple years after she got a scape on the top of the hand knuckle resulting in elbow pain and then started getting weird, went to to get checked out which resulted in an infection that she had to be hospitalized for. Since then lymphedema symptoms have been under control until the last couple of years, has had a couple of falls resulting in shoulder problems which she has been doing PT since Oct. Shoulder wasn't getting better and swelling has been worsening. Got her compression garments at [facility] in [place]. 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 Lived in [facility] for 48 yrs, and still have PCP and doctors visit in [place]. Taught to self bandage but has not done it years, or sure if all bandages are in her possession. Has tried minimal self MFD, but reports having complaints of doing it properly and reaching hard to reach areas. Lymphedema evident right UE, right subaxillary region and lateral and posterior trunk. Prior Treatments and Post Mastectomy January 2000 Tests Multipe lymph nodes removed Left lumpectomy/breast reconstruction 24' Future Testing and Mild AC joint OA Rotator cuff tendinopathy Treatments Planned PT-OP-C Subjective Start: 03/01/25 10:16 Freq: Status: Active Protocol: Document 04/04/25 10:43 SAK (Rec: 04/04/25 11:23 SAK Laptop) OP-PT Subjective Patient Comments Patient Comments Ok with pump pressure turned down last session, felt helpful. Progress up and down. Has been trying to bandage more at home, wears compression garments when not bandaged. Currently wearing compression garments that are a little less than 6 months old. Going to go through [email or web address] for new ones. Has had to start taking Methotrexate again, having hot flashes. This Friday nuclear bone scan. Got a prescription for compression garments but needs to contact doctor for more detail. Shoulder pain a little less, doing her exercises. Very interested in getting sequential pneumatic pump to assist with her self management at home. PT-OP-F Manual Assessment Start: 03/01/25 10:16 Freq: Status: Active Protocol: Document 03/01/25 10:45 LFG (Rec: 03/01/25 11:37 LFG [id number]) Manual Assessments Soft Tissue Assessment Soft Tissue Mobility R masectomy scar rigid/stiff Assessment PT-OP-K Range of Motion Start: 03/01/25 10:16 Freq: Status: Active Protocol: Document 03/01/25 10:45 LFG (Rec: 03/01/25 12:03 LFG [id number]) Shoulder Goniometric Range of Motion Shoulder Right Internal Rotation upper lumber, lower thoracic with pain Behind Back (text) Comments General Screening Flexion/Abduction/ER all w/ normal limits Left Internal Rotation mid thoracic scapula Behind Back (text) Comments General Screening Flexion/Abduction/ER all w/ functional limits but all movements cause pain PT-OP-N Lymphedema Start: 03/01/25 10:16 Freq: Status: Active Protocol: Document 04/04/25 10:43 SAK (Rec: 04/04/25 11:23 SAK Laptop) Lymphedema Measurements Upper Extremity Circumference Measurements Right MCP 19.5 cm Dorsum of Hand 19.7 cm Wrist 17.3 cm 5 cm From Wrist 19.6 cm Crease 10 cm From Wrist 23.4 cm Crease 15 cm From Wrist 27.2 cm Crease 20 cm From Wrist 28.8 cm Crease 25 cm From Wrist 28.5 cm Crease 30 cm From Wrist 31.5 cm Crease 35 cm From Wrist 34.2 cm Crease 40 cm From Wrist 35.8 cm Crease 45 cm From Wrist 36.3 cm Crease Elbow Joint 28.5 cm - 50 cm: 36.8 sitting PT-OP-Q Treatments Start: 03/01/25 10:16 Freq: Status: Active Protocol: Document 04/04/25 10:43 [facility] (Rec: 04/04/25 11:23 [facility] Laptop) Manual Therapy Treatment Consent Patient gave verbal Yes consent for manual treatment Soft Tissue Mobilization mastectomy scar Mobilization Type Instrument Assisted,Myofascial Release R pec Mobilization Type Cross-Friction,Rolling Intensity/Depth Moderate Body Position Hooklying Lymphedema Treatment Manual Lymphatic Drainage Location R UE lymphedema all drains, highways ant and post and R UE ant and post Comments supine and sidelying Lymphedema Wrapping Body Location R UE Materials bandaging fingers, hand to axilla artiflex, 4 cm 6 cm and 10 cm Comprilan, pad for post hand into wrist area. Sequential Lymphedema Exercises Location diaphragmatic breathing Duration X 15 for scap squeeze shoulder rolls, shoulder isomet ext abd and flex X8 Comments ER and IR X 3 Encouragement for use/exercise of right UE when bandaged. Compression Garment Assessment Compression Garment Current garments good fit, looking to get replaced, Assessment Details almost 6 months old. Patient Education Compression Garments discussed obtaining new Other Discussed benefits of use of sequential pneumatic pump, pt. would like to proced with obtaining for home use. PT-OP-R Modalities Start: 03/01/25 10:16 Freq: Status: Active Protocol: Document 04/04/25 10:43 [facility] (Rec: 04/04/25 11:41 [facility] Laptop) Compression Pump Treatment Treatment Location R UE Treatment Comments Airos 6 pneumatic compression pump with Arm Plus garment which includes trunk X 10 min pressure to 40 PT-OP-T Assessment and Plan Start: 03/01/25 10:16 Freq: Status: Active Protocol: Document 04/04/25 10:43 SAK (Rec: 04/04/25 11:23 [facility] Laptop) Physical Therapy Assessment Goals Three Impairment impaired soft tissue mobility of mastectomy scar Nursing Home Goal (LTG) Improve soft tissue mobility of scar tissue to improve lymphatic flow 04/01/25: have initiated scar mobilization with good tolerance LTG Duration 05/18/25 Two Impairment lymphedema life impact scale 21% Nursing Home Goal (LTG) Decrease lymphedema life impact scale to no greater than 5% as measure of improved activity tolerance and quality of life 04/01/25: decreased to 17% LTG Duration 05/18/25 One Impairment lymphedema exacerbation right UE Short Term Goal (STG Patient will be instructed in all aspects of lymphedema ) self-care to include skin care, elevation, self- massage, self-bandaging/compression options, and lymphedema exercises. 04/01/25: goal met STG Duration 04/14/25 Hospice Administrator Goal (LTG) Decrease patient?s lymphedema to a stable level (no increase or decrease greater than 1 cm over the course of 1 week), patient to be independent with all aspects of self-care for lymphedema, and will obtain appropriate compression garment for lymphedema management in the home. LTG Duration 05/18/25 Progress Towards Goals Progress Towards Progressing Toward Goals,Slow Progress due to Medical Goals Issues Assessment Summary Assessment Circumferential measurements variable, some decreased some inc, some stable. Patient has been seen for treatment for lymphedema right UE, subaxillary, chest and lateral trunk region since 03/01/25. Despite treatment and self management which includes elevation, skin care, manual lymphatic drainage, lymphedema exercises, and compression she continues to have difficulty with managing her lymphedema. FEel she would benefit highly from the use of a sequential pneumatic pump with arm and trunk components as an adjunct to her self management in the home. Trial use of Airos 6 sequential pneumatic pump with ArmPlus sleeve in PT has been tolerated well and patient showed a decrese in measurements after trial. Physical Therapy Plan Frequency and Duration Frequency of 20 Treatment Duration of 12 treatment (weeks) Plan of Care Start 03/01/25 Date Plan of Care End 05/18/25 Date Therapeutic Interventions Therapeutic Home Exercise Program,Lymphedema Management,Manual Interventions Therapy,Patient/Caregiver Education,Self-Care/Home Management,Soft Tissue Mobilization,Therapeutic Activities,Therapeutic Exercises Modalities Vasopneumatic Devices Next Visit Focus/Plan Next Note Type Treatment Note Next Visit Plan Continue CDT, request sequential pneumatic pump for home use. Patient getting prescription for new compression garments.
--- NOTE | 2025-04-06 12:32 | PT.OTN ---
Current Diagnoses Postmastectomy lymphedema syndrome (04/06/25) Physical Therapy Treatment Note PT OP: Lymphedema Upper Extremity Start: 04/06/25 09:58 Freq: Status: Active Protocol: Document 04/06/25 09:59 AB (Rec: 04/06/25 11:05 AB [id number]) Out-Patient Physical Therapy Visit Information Visit Information Visit Type Treatment Note Visit Start Time 10:46 Visit Stop Time 12:20 Visit Number 7 Number of ASSISTANT WOMEN'S TENNIS COACH Visits 1 Progress Note Due 05/04/25 OP-PT Subjective Patient Comments Patient Comments Patient reports she had a reaction to the gauze, had to take it off early the next morning, itchy and red between fingers. Patient reports she wants to try again . Lymphedema Measurements Upper Extremity Circumference Measurements Right MCP 19.2 cm Dorsum of Hand 21.1 cm Wrist 16.7 cm 5 cm From Wrist 19.6 cm Crease 10 cm From Wrist 23.1 cm Crease 15 cm From Wrist 27 cm Crease 20 cm From Wrist 29.3 cm Crease 25 cm From Wrist 29.1 cm Crease 30 cm From Wrist 31.5 cm Crease 35 cm From Wrist 34.9 cm Crease 40 cm From Wrist 37.2 cm Crease 45 cm From Wrist 38.4 cm Crease Elbow Joint 28.8 cm - 50 cm 38.6 cm hooklying Lymphedema Treatment Manual Lymphatic Drainage Location R UE lymphedema all drains, highways ant and post and R UE ant and post Comments supine and sidelying Lymphedema Wrapping Materials bandaging fingers, hand to axilla artiflex, 4 cm 6 cm and 10 cm Comprilan, pad for post hand into wrist area. Other lotion/Cetaphil applied prior fingers to near axilla R UE Sequential Lymphedema Exercises Location diaphragmatic breathing Duration X 15 for scap squeeze Comments ER and IR X 3 supine shoulder flexion hands clasped X 5 with right UE when bandaged. AROM supine shoulder flexion R UE 159 deg standing 145 deg Compression Pump Treatment Treatment Location R UE Treatment Comments Airos 6 pneumatic compression pump with Arm Plus garment which includes trunk X 10 min pressure to 35 Physical Therapy Assessment Goals Three Impairment impaired soft tissue mobility of mastectomy scar Supervisor Diagnostic Goal (LTG) Improve soft tissue mobility of scar tissue to improve lymphatic flow 04/04/25: have initiated scar mobilization with good tolerance LTG Duration 05/18/25 Two Impairment lymphedema life impact scale 21% Residential Goal (LTG) Decrease lymphedema life impact scale to no greater than 5% as measure of improved activity tolerance and quality of life 04/04/25: decreased to 17% LTG Duration 05/18/25 One Impairment lymphedema exacerbation right UE Short Term Goal (STG Patient will be instructed in all aspects of lymphedema ) self-care to include skin care, elevation, self- massage, self-bandaging/compression options, and lymphedema exercises. 04/04/25: goal met STG Duration goal met Residential Goal (LTG) Decrease patient?s lymphedema to a stable level (no increase or decrease greater than 1 cm over the course of 1 week), patient to be independent with all aspects of self-care for lymphedema, and will obtain appropriate compression garment for lymphedema management in the home. LTG Duration 05/18/25 Assessment Summary Assessment 7 areas increased 2 unchanged and 5 areas decreased, most of the increased areas are superior to elbow. Physical Therapy Plan Frequency and Duration Frequency of 20 Treatment Duration of 12 treatment (weeks) Plan of Care Start 03/01/25 Date Plan of Care End 05/18/25 Date Next Visit Focus/Plan Next Note Type Treatment Note Next Visit Plan Continue CDT, request sequential pneumatic pump for home use. Patient getting prescription for new compression garments.
--- NOTE | 2025-04-11 11:54 | PT.OTN ---
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) Physical Therapy Treatment Note PT OP: Lymphedema Upper Extremity Start: 04/06/25 09:58 Freq: Status: Active Protocol: Document 04/11/25 10:39 CARLEE (Rec: 04/11/25 11:08 CARLEE Laptop) Out-Patient Physical Therapy Visit Information Visit Information Visit Type Treatment Note Visit Start Time 10:43 Visit Stop Time 12:12 Visit Number 8 Number of SALES TEACHER Visits 0 Progress Note Due 05/04/25 Current Condition History of Current Condition Onset Date 1999 Current Complaints Lymphedema exacerbation History of Current Lymphedema symptoms started to come on the same year as Condition the mastectomy in 1999, did the whole bandaging/ wrapping including fingers. A couple years after she got a scape on the top of the hand knuckle resulting in elbow pain and then started getting weird, went to [facility] to get checked out which resulted in an infection that she had to be hospitalized for. Since then lymphedema symptoms have been under control until the last couple of years, has had a couple of falls resulting in shoulder problems which she has been doing PT since Oct. Shoulder wasn't getting better and swelling has been worsening. Got her compression garments at [facility] in [place]. 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 Lived in [facility] for 48 yrs, and still have PCP and doctors visit in [place]. Taught to self bandage but has not done it years, or sure if all bandages are in her possession. Has tried minimal self MLD, but reports having complaints of doing it properly and reaching hard to reach areas. Lymphedema evident right UE, right subaxillary region and lateral and posterior trunk. Prior Treatments and Post Mastectomy January 2000 Tests Multipe lymph nodes removed Left lumpectomy/breast reconstruction 24' Future Testing and Mild AC joint OA Rotator cuff tendinopathy Treatments Planned OP-PT Subjective Patient Comments Patient Comments Hasn't gotten new garments ordered yet; has gotten complicated due to other appointments. Goes to [facility] next week. Didn't have reaction to finger bandages after last session. Denies bandaging by this PT being too tight. Uses the finger bandages 2-3 times before getting new ones. Lymphedema Measurements Upper Extremity Circumference Measurements Right MCP 19.4 cm Dorsum of Hand 20.8 cm Wrist 17 cm 5 cm From Wrist 20.9 cm Crease 10 cm From Wrist 24.6 cm Crease 15 cm From Wrist 27.7 cm Crease 20 cm From Wrist 29.3 cm Crease 25 cm From Wrist 29.4 cm Crease 30 cm From Wrist 32.5 cm Crease 35 cm From Wrist 35.7 cm Crease 40 cm From Wrist 38.2 cm Crease 45 cm From Wrist 39.2 cm Crease Elbow Joint 29.4 cm - 50 cm 38.6 cm hooklying Lymphedema Treatment Manual Lymphatic Drainage Location R UE lymphedema all drains, highways ant and post and R UE ant and post Comments supine and sidelying includes whole upper quadrant right Lymphedema Wrapping Materials bandaging fingers, hand to axilla artiflex, 4 cm 6 cm and 10 cm Comprilan, pad for post hand into wrist area. Other lotion/Cetaphil applied prior fingers to near axilla R UE Sequential Lymphedema Exercises Location diaphragmatic breathing Duration X 15 for scap squeeze Comments ER and IR X 3 supine shoulder flexion hands clasped X 5 with right UE when bandaged. AROM supine shoulder flexion R UE deg standing deg Compression Pump Treatment Treatment Location R UE Treatment Comments Airos 6 pneumatic compression pump with Arm Plus garment which includes trunk X 10 min pressure to 40 Physical Therapy Assessment Goals Three Impairment impaired soft tissue mobility of mastectomy scar Travel Sales Consultant Goal (LTG) Improve soft tissue mobility of scar tissue to improve lymphatic flow 04/04/25: have initiated scar mobilization with good tolerance LTG Duration 05/18/25 Two Impairment lymphedema life impact scale 21% Correction Goal (LTG) Decrease lymphedema life impact scale to no greater than 5% as measure of improved activity tolerance and quality of life 04/04/25: decreased to 17% LTG Duration 05/18/25 One Impairment lymphedema exacerbation right UE Short Term Goal (STG Patient will be instructed in all aspects of lymphedema ) self-care to include skin care, elevation, self- massage, self-bandaging/compression options, and lymphedema exercises. 04/04/25: goal met STG Duration goal met Travel Sales Consultant Goal (LTG) Decrease patient?s lymphedema to a stable level (no increase or decrease greater than 1 cm over the course of 1 week), patient to be independent with all aspects of self-care for lymphedema, and will obtain appropriate compression garment for lymphedema management in the home. LTG Duration 05/18/25 Assessment Summary Assessment All areas showed increased circumference today, possibly due to heat. ENcouraging replacement of compression garments as well; has appointment at [facility] next week and will get ordered then. Compliant to self care. Feel will benefit from sequential pneumatic pump; all paperwork has been submitted for this Physical Therapy Plan Frequency and Duration Frequency of 20 Treatment Duration of 12 treatment (weeks) Plan of Care Start 03/01/25 Date Plan of Care End 05/18/25 Date Next Visit Focus/Plan Next Note Type Treatment Note Next Visit Plan Continue CDT, request sequential pneumatic pump for home use. Patient getting prescription for new compression garments.
--- NOTE | 2025-04-14 11:25 | PT.OTN ---
Current Diagnoses Postmastectomy lymphedema syndrome (04/14/25) Physical Therapy Treatment Note PT OP: Lymphedema Upper Extremity Start: 04/06/25 09:58 Freq: Status: Active Protocol: Document 04/14/25 10:45 [facility] (Rec: 04/14/25 11:03 SAK Laptop) Out-Patient Physical Therapy Visit Information Visit Information Visit Type Treatment Note Visit Start Time 10:43 Visit Stop Time 12:14 Visit Number 8 Number of ASSEMBLER BODY Visits 0 Progress Note Due 05/04/25 OP-PT Subjective Patient Comments Patient Comments Was able to leave bandaging on from PT, no problems with any rash from finger bandages this time. Sees oncologist next week and is requesting referral for new custom compression garments. Hopeful to get a sequential pneumatic pump, has had positive results with trial in PT. Lymphedema Measurements Upper Extremity Circumference Measurements Right MCP 19.3 cm Dorsum of Hand 20.2 cm Wrist 17.9 cm 5 cm From Wrist 19.2 cm Crease 10 cm From Wrist 23 cm Crease 15 cm From Wrist 26.6 cm Crease 20 cm From Wrist 29.3 cm Crease 25 cm From Wrist 29.2 cm Crease 30 cm From Wrist 32.1 cm Crease 35 cm From Wrist 33.9 cm Crease 40 cm From Wrist 37.2 cm Crease 45 cm From Wrist 39.3 cm Crease Elbow Joint 29.2 cm - 50 cm 39.4 cm hooklying Lymphedema Treatment Manual Lymphatic Drainage Location R UE lymphedema all drains, highways ant and post and R UE ant and post Comments supine and sidelying includes whole upper quadrant right Lymphedema Wrapping Materials bandaging fingers, hand to axilla artiflex, 4 cm 6 cm and 10 cm Comprilan, pad for post hand into wrist area. Other lotion/Cetaphil applied prior fingers to near axilla R UE Sequential Lymphedema Exercises Location diaphragmatic breathing Duration X 15 for scap squeeze Comments ER and IR X 3 supine shoulder flexion hands clasped X 5 with right UE when bandaged. Nu-Step arms 12, legs 9 x 5 min with good shannan to facilitate lymphatic flow after bandaging. Patient Education Sequential reviewed today for HEP Lymphedema Exercises Other Other Emphasis HEP when bandaged, conrtinue pt education technique for self bandaging for increased effectivess, pt. demonstrated good understanding but has difficulty as firm as PT. Compression Pump Treatment Treatment Location R UE Treatment Comments Airos 6 pneumatic compression pump with Arm Plus garment which includes trunk X 30 min pressure to 37 mm Hg to tolerance Physical Therapy Assessment Goals Three Impairment impaired soft tissue mobility of mastectomy scar Prison Goal (LTG) Improve soft tissue mobility of scar tissue to improve lymphatic flow 04/04/25: have initiated scar mobilization with good tolerance, very adhered to chest wall LTG Duration 05/18/25 Two Impairment lymphedema life impact scale 21% Prison Goal (LTG) Decrease lymphedema life impact scale to no greater than 5% as measure of improved activity tolerance and quality of life 04/04/25: decreased to 17% LTG Duration 05/18/25 One Impairment lymphedema exacerbation right UE Short Term Goal (STG Patient will be instructed in all aspects of lymphedema ) self-care to include skin care, elevation, self- massage, self-bandaging/compression options, and lymphedema exercises. 04/04/25: goal met STG Duration goal met Prison Goal (LTG) Decrease patient?s lymphedema to a stable level (no increase or decrease greater than 1 cm over the course of 1 week), patient to be independent with all aspects of self-care for lymphedema, and will obtain appropriate compression garment for lymphedema management in the home. 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 Circumferential measurements variable today, most decreased after showing increase all measurements last session. Feel she will benefit highly from the use of a sequential pneumatic pump for home use as an adjunct to all other components of self management for lymphedema. Patient to see oncologist next week. Will call to request measurement for custom compression garments. Physical Therapy Plan Frequency and Duration Frequency of 20 Treatment Duration of 12 treatment (weeks) Plan of Care Start 03/01/25 Date Plan of Care End 05/18/25 Date Next Visit Focus/Plan Next Note Type Treatment Note Next Visit Plan Continue CDT, request sequential pneumatic pump for home use. Patient getting prescription for new compression garments.
--- NOTE | 2025-05-05 18:24 | PT.OTN ---
Current Diagnoses Postmastectomy lymphedema syndrome (05/05/25) Physical Therapy Treatment Note PT OP: Lymphedema Upper Extremity Start: 04/06/25 09:58 Freq: Status: Active Protocol: Document 05/05/25 13:35 AB (Rec: 05/05/25 14:14 AB [id number]) Out-Patient Physical Therapy Visit Information Visit Information Visit Type Treatment Note Visit Start Time 13:43 Visit Stop Time 15:17 Visit Number 9 Number of SHIPPING AGENT Visits 1 Progress Note Due 05/04/25 OP-PT Subjective Patient Comments Patient Comments Patient reports pump is due to arrive within the next week. Patient reports she followed up regarding garments this week and the insurance auth is now being requested. Patient Questionnaires Lymphedema Life Impact Score Lymphedema Score 36.1 Lymphedema 20 to 39% Impaired (Score 33-46) Impairment Lymphedema Measurements Upper Extremity Circumference Measurements Right MCP 19.2 cm Dorsum of Hand 20.6 cm Wrist 16.9 cm 5 cm From Wrist 19.8 cm Crease 10 cm From Wrist 22.5 cm Crease 15 cm From Wrist 25.8 cm Crease 20 cm From Wrist 28.1 cm Crease 25 cm From Wrist 28.8 cm Crease 30 cm From Wrist 30.1 cm Crease 35 cm From Wrist 33.1 cm Crease 40 cm From Wrist 36.1 cm Crease 45 cm From Wrist 37.8 cm Crease Elbow Joint 28.6 cm - 50 cm 38.4 cm Lymphedema Treatment Manual Lymphatic Drainage Location R UE lymphedema all drains, highways ant and post and R UE ant and post Comments supine and sidelying also STM friction and rolling to pec and scar tissue R UE Lymphedema Wrapping Materials bandaging fingers, hand to axilla artiflex, 4 cm 6 cm and 10 cm Comprilan, pad for post hand into wrist area. Other lotion/Cetaphil applied prior fingers to near axilla R UE Sequential Lymphedema Exercises Location diaphragmatic breathing Duration X 15 for scap squeeze Comments supine shoulder extension isometric Compression Pump Treatment Treatment Location R UE Treatment Comments Airos 6 pneumatic compression pump with Arm Plus garment which includes trunk X11 min pressure to 37 mm Hg to tolerance Physical Therapy Assessment Goals Three Impairment impaired soft tissue mobility of mastectomy scar Stick Inserter Goal (LTG) Improve soft tissue mobility of scar tissue to improve lymphatic flow 04/04/25: have initiated scar mobilization with good tolerance, very adhered to chest wall 05/05/2025: noted area of density post to scar persists. LTG Duration 05/18/25 Two Impairment lymphedema life impact scale 21% Alf Goal (LTG) Decrease lymphedema life impact scale to no greater than 5% as measure of improved activity tolerance and quality of life 04/04/25: decreased to 17% 05/05/2025 26/18 *25 =36.1% LTG Duration 05/18/25 One Impairment lymphedema exacerbation right UE Short Term Goal (STG Patient will be instructed in all aspects of lymphedema ) self-care to include skin care, elevation, self- massage, self-bandaging/compression options, and lymphedema exercises. 04/04/25: goal met STG Duration goal met Alf Goal (LTG) Decrease patient?s lymphedema to a stable level (no increase or decrease greater than 1 cm over the course of 1 week), patient to be independent with all aspects of self-care for lymphedema, and will obtain appropriate compression garment for lymphedema management in the home. 05/05/2025Decrease in all but 2 areas, but 4 areas did have changes greater than one cm. LTG Duration 05/18/25 Assessment Summary Assessment Decrease in all but 2 areas, but 4 areas did have changes greater than one cm. Patient is not progressing toward lymphedema life impact score, comments bandaging makes things difficult to use UE. Physical Therapy Plan Frequency and Duration Frequency of 20 Treatment Duration of 12 treatment (weeks) Plan of Care Start 03/01/25 Date Plan of Care End 05/18/25 Date Next Visit Focus/Plan Next Note Type Treatment Note Next Visit Plan Continue CDT, request sequential pneumatic pump for home use. Patient getting prescription for new compression garments.
--- NOTE | 2025-05-05 19:15 | PT.OPPN ---
Current Diagnoses Postmastectomy lymphedema syndrome (05/05/25) Physical Therapy Progress Note PT OP: Lymphedema Upper Extremity Start: 04/06/25 09:58 Freq: Status: Active Protocol: Document 05/05/25 19:12 BL (Rec: 05/06/25 15:14 BL Laptop) Out-Patient Physical Therapy Visit Information Visit Information Visit Type Progress Note Physical Therapy Assessment Goals Three Impairment impaired soft tissue mobility of mastectomy scar Jail Goal (LTG) Improve soft tissue mobility of scar tissue to improve lymphatic flow 04/04/25: have initiated scar mobilization with good tolerance, very adhered to chest wall 05/05/2025: noted area of density post to scar persists. LTG Duration 05/18/25 Two Impairment lymphedema life impact scale 21% Export Administrator Goal (LTG) Decrease lymphedema life impact scale to no greater than 5% as measure of improved activity tolerance and quality of life 04/04/25: decreased to 17% 05/05/2025 26/18 *25 =36.1% LTG Duration 05/18/25 One Impairment lymphedema exacerbation right UE Short Term Goal (STG Patient will be instructed in all aspects of lymphedema ) self-care to include skin care, elevation, self- massage, self-bandaging/compression options, and lymphedema exercises. 04/04/25: goal met STG Duration goal met Export Administrator Goal (LTG) Decrease patient?s lymphedema to a stable level (no increase or decrease greater than 1 cm over the course of 1 week), patient to be independent with all aspects of self-care for lymphedema, and will obtain appropriate compression garment for lymphedema management in the home. 05/05/2025Decrease in all but 2 areas, but 4 areas did have changes greater than one cm. LTG Duration 05/18/25 Assessment Summary Assessment Pt continues to make good progress in skilled Physical Therapy intervention. pt demos a decrease in all but 2 areas, but 4 areas did have changes greater than one cm . Patient is not progressing toward lymphedema life impact score, comments bandaging makes things difficult to use UE. Pt will continue to benefit from additional education and manual lymph drainage technique along with fitment check following arrival of compression garments. Physical Therapy Plan Frequency and Duration Frequency of 20 Treatment Duration of 12 treatment (weeks) Plan of Care Start 03/01/25 Date Plan of Care End 05/18/25 Date Next Visit Focus/Plan Next Note Type Treatment Note Next Visit Plan Continue CDT, request sequential pneumatic pump for home use. Patient getting prescription for new compression garments.
--- NOTE | 2025-05-11 14:47 | PT.OTN ---
Current Diagnoses Postmastectomy lymphedema syndrome (05/11/25) Physical Therapy Treatment Note PT OP: Lymphedema Upper Extremity Start: 04/06/25 09:58 Freq: Status: Active Protocol: Document 05/11/25 12:58 AB (Rec: 05/11/25 13:18 AB [id number]) Out-Patient Physical Therapy Visit Information Visit Information Visit Type Treatment Note Visit Start Time 13:00 Visit Stop Time 14:32 Visit Number 10 Number of HERBICIDE SERVICE SALES REPRESENTATIVE Visits 2 Progress Note Due 05/04/25 OP-PT Subjective Patient Comments Patient Comments Patient's compression pump arrived at clinic and today' s session training for set up will occur. Patient reports she continues to bandage, no updates for garmets today. 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 Patient reports she will be seeing a sports Ortho for this. Lymphedema Measurements Upper Extremity Circumference Measurements Right - axilla 40.8 cm upper arm 34. 6 cm forarm 26. 5 cm diaphragm 100.3 cm inseem 51. 6cm Lymphedema Treatment Manual Lymphatic Drainage Location R UE lymphedema all drains, highways ant and post and R UE ant and post Comments supine and sidelying also STM friction and rolling to pec and scar tissue R UE Lymphedema Wrapping Materials bandaging fingers, hand to axilla artiflex, 4 cm 6 cm and 10 cm Comprilan, pad for post hand into wrist area. Other lotion/Cetaphil applied prior fingers to near axilla R UE Sequential Lymphedema Exercises Location diaphragmatic breathing Duration X 15 for scap squeeze Comments supine shoulder extension, flexion, abduction, ER and IR isometric R UE Compression Pump Treatment Treatment Location R UE Pressure Amount ( 37 mmHg) (mmHG) Treatment Tolerance Good Treatment Comments Patient setting up pump, requires assist with sleeve, reports spouse will assist, added largest piece at trunk, Patient ed unit set up at 37mmHG, safety instructions reviewed. Patient able to position sleeve on body, and plug into unit as well as turn on and start unit. 12 minutes this session Physical Therapy Assessment Goals Three Impairment impaired soft tissue mobility of mastectomy scar Jail Goal (LTG) Improve soft tissue mobility of scar tissue to improve lymphatic flow 04/04/25: have initiated scar mobilization with good tolerance, very adhered to chest wall 05/05/2025: noted area of density post to scar persists. LTG Duration 05/18/25 Two Impairment lymphedema life impact scale 21% Hospital Staff Pharmacist Goal (LTG) Decrease lymphedema life impact scale to no greater than 5% as measure of improved activity tolerance and quality of life 04/04/25: decreased to 17% 05/05/202518 *25 =36.1% LTG Duration 05/18/25 One Impairment lymphedema exacerbation right UE Short Term Goal (STG Patient will be instructed in all aspects of lymphedema ) self-care to include skin care, elevation, self- massage, self-bandaging/compression options, and lymphedema exercises. 04/04/25: goal met STG Duration goal met Jail Goal (LTG) Decrease patient?s lymphedema to a stable level (no increase or decrease greater than 1 cm over the course of 1 week), patient to be independent with all aspects of self-care for lymphedema, and will obtain appropriate compression garment for lymphedema management in the home. 05/05/2025Decrease in all but 2 areas, but 4 areas did have changes greater than one cm. LTG Duration 05/18/25 Assessment Summary Assessment Patient able to set up pump, turn on and off, able to doff sleeve, but requires assist and verbalizes spouse will assist. Phoned patient to make patient aware to use 60 minutes once a day. Physical Therapy Plan Frequency and Duration Frequency of 20 Treatment Duration of 12 treatment (weeks) Plan of Care Start 03/01/25 Date Plan of Care End 05/18/25 Date Next Visit Focus/Plan Next Note Type Treatment Note Next Visit Plan Continue CDT, Patient getting prescription for new compression garments. Possibly increased focus on scar tissue.
--- NOTE | 2025-05-24 12:09 | PT.OPPOC ---
Physical, Occupational & Speech Therapy At 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) Visit Care Team Role Provider Type DEIRDRE Sánchez Attending Provider Non-Staff Family Provider Primary Care Provider Referring Provider Specialty: Family Practice Address: [address] [place] [address], [facility] Email: Plan Of Care PT OP: Lymphedema Upper Extremity Start: 04/06/25 09:58 Freq: Status: Active Protocol: Document 05/24/25 10:23 SAK (Rec: 05/24/25 10:44 SAK Laptop) Out-Patient Physical Therapy Visit Information Visit Information Visit Type Treatment Note Visit Start Time 09:05 Visit Stop Time 10:30 Visit Number 11 Progress Note Due 06/04/25 OP-PT Subjective Patient Comments Patient Comments Patient reports she has pump and has been using but having challenges with soreness in breast and arm, wants to review how to correctly use. No new compression garments yet, having challenges with insurance coverage through [employer]; they have had insurance contract cancelled with her insurance. May be going to [facility] to see if able to work hrough them. MRI thigh, going to see physician this Friday. Lymphedema Measurements Upper Extremity Circumference Measurements Right MCP 20 cm Dorsum of Hand 20.4 cm Wrist 17.2 cm 5 cm From Wrist 20.2 cm Crease 10 cm From Wrist 23.9 cm Crease 15 cm From Wrist 26.8 cm Crease 20 cm From Wrist 28.4 cm Crease 25 cm From Wrist 30 cm Crease 30 cm From Wrist 33.2 cm Crease 35 cm From Wrist 34.8 cm Crease 40 cm From Wrist 35.7 cm Crease 45 cm From Wrist 36.3 cm Crease Elbow Joint 29 cm Lymphedema Treatment Manual Lymphatic Drainage Location R UE lymphedema all drains, highways ant and post and R UE ant and post Comments supine and sidelying also STM friction and rolling to pec and scar tissue R UE Lymphedema Wrapping Materials bandaging fingers, hand to axilla artiflex, 4 cm 6 cm and 10 cm Comprilan, pad for post hand into wrist area. Other lotion/Cetaphil applied prior fingers to near axilla R UE Sequential Lymphedema Exercises Comments verbal review open book NuStep x 10 min L1 to facilitate lymphatic flow after bandaging Other Other problem solved use of pump; put over not under breast, issued chip bag to put inside on right chest, encouraged patient to try decreased time and frequency initially if still sore and shown how to make modifications to pressure of pump. Also encouraged try foam pad over back of hand inside pump in addition to chip bag chest, may consider further foam Physical Therapy Assessment Goals Three Impairment impaired soft tissue mobility of mastectomy scar Crane Crew Supervisor Goal (LTG) Improve soft tissue mobility of scar tissue to improve lymphatic flow 04/04/25: have initiated scar mobilization with good tolerance, very adhered to chest wall 05/05/2025: noted area of density post to scar persists. 05/24/25: initiated use of suction tool to PT today due to persistent tightness LTG Duration 07/31/25 Two Impairment lymphedema life impact scale 21% Crane Crew Supervisor Goal (LTG) Decrease lymphedema life impact scale to no greater than 5% as measure of improved activity tolerance and quality of life 04/04/25: decreased to 17% 05/05/2025 26/18 *25 =36.1% 05/24/25: 25% (largely due to difficulty with obtaining compression due to insurance issues) LTG Duration 07/31/25 One Impairment lymphedema exacerbation right UE Short Term Goal (STG Patient will be instructed in all aspects of lymphedema ) self-care to include skin care, elevation, self- massage, self-bandaging/compression options, and lymphedema exercises. 04/04/25: goal met STG Duration goal met Care Home Goal (LTG) Decrease patient?s lymphedema to a stable level (no increase or decrease greater than 1 cm over the course of 1 week), patient to be independent with all aspects of self-care for lymphedema, and will obtain appropriate compression garment for lymphedema management in the home. 05/05/2025Decrease in all but 2 areas, but 4 areas did have changes greater than one cm. 05/24/25: circumferential measurements variable, most increased today, possibly due to 2 wks without PT, incorrect positioning of sequential pneumatic pump at home. Still working with [employer]erna Story to obtain new compression garments, reports not able to bandage at home as well as PT. LTG Duration 07/31/25 Assessment Summary Assessment Patient demonstrated an improved understanding of use and fit of sequential pneumatic pump as instructed above, as well as using foam inserts inside pump as well for further facilitation of lymphatic flow. Pt. encouraged to order second set of compression bandages as hasn't obtained new compression garments yet due to insurance issues. Would benefit from further PT to help her reach all above goals. POC discussed and patient was in agreement Physical Therapy Plan Frequency and Duration Frequency of 4 visits Treatment Duration of 8 treatment (weeks) Plan of Care Start 05/24/25 Date Plan of Care End 07/31/25 Date Therapeutic Interventions Therapeutic Home Exercise Program,Lymphedema Management,Manual Interventions Therapy,Patient/Caregiver Education,Self-Care/Home Management,Soft Tissue Mobilization,Therapeutic Activities,Therapeutic Exercises Modalities Vasopneumatic Devices Next Visit Focus/Plan Next Note Type Treatment Note Next Visit Plan Continue PT for manual therapy, patient education, therapeutic exercise to address above goals. Assess respnse to use of suction tools for scar mobilization and education patient in self use for possible home self massage/soft tissue mob. Plan of Care Dates Plan of Care Start Date 05/24/25 Plan of Care End Date 07/31/25 Electronically Signed by: Shazia Lizama, PT 05/24/25 1191 If you are in agreement with this Plan of Care, please return a signed and dated copy. I have reviewed this Plan of Care and certify that the skilled therapy services above are required to meet the patient?s needs. Physician Signature Date Printed Name and Credentials Clinical Instructor Signature Printed Name and Credentials
--- NOTE | 2025-05-31 14:13 | PT.OPDS ---
Current Diagnoses Postmastectomy lymphedema syndrome (05/31/25) Visit Care Team Role Provider Type DEIRDRE Sánchez Attending Provider Non-Staff Family Provider Primary Care Provider Referring Provider Specialty: Family Practice Address: [address] [place] [address], [place], [address] Email: Visit Number Visit Number 12 Discharge Summary PT OP: Lymphedema Upper Extremity Start: 04/06/25 09:58 Freq: Status: Active Protocol: Document 05/31/25 13:00 SAK (Rec: 05/31/25 13:26 SAK Laptop) Out-Patient Physical Therapy Visit Information Visit Information Visit Type Treatment Note Visit Start Time 13:00 Visit Stop Time 16:10 Visit Number 12 Progress Note Due 06/04/25 Evaluation Information Evaluation Date 03/01/25 Current Condition History of Current Condition Onset Date 1999 Current Complaints Lymphedema exacerbation History of Current Lymphedema symptoms started to come on the same year as Condition the mastectomy in 1999, did the whole bandaging/ wrapping including fingers. A couple years after she got a scape on the top of the hand knuckle resulting in elbow pain and then started getting weird, went to [facility] to get checked out which resulted in an infection that she had to be hospitalized for. Since then lymphedema symptoms have been under control until the last couple of years, has had a couple of falls resulting in shoulder problems which she has been doing PT since Oct. Shoulder wasn't getting better and swelling has been worsening. Got her compression garments at [facility] [place]. 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 Lived in [facility] for 48 yrs, and still have PCP and doctors visit in [place]. Taught to self bandage but has not done it years, or sure if all bandages are in her possession. Has tried minimal self MLD, but reports having complaints of doing it properly and reaching hard to reach areas. Lymphedema evident right UE, right subaxillary region and lateral and posterior trunk. Prior Treatments and Post Mastectomy January 2000 Tests Multipe lymph nodes removed Left lumpectomy/breast reconstruction 24' Future Testing and Mild AC joint OA Rotator cuff tendinopathy Treatments Planned OP-PT Subjective Patient Comments Patient Comments Plugging along, using the pump at 30 at a time. Has a new sleeve and gauntlet. More snug, can't find donning aid, assisting. Lymphedema Measurements Upper Extremity Circumference Measurements Right MCP 19.7 cm Dorsum of Hand 20.3 cm Wrist 17.1 cm 5 cm From Wrist 21 cm Crease 10 cm From Wrist 23.3 cm Crease 15 cm From Wrist 26.3 cm Crease 20 cm From Wrist 28.4 cm Crease 25 cm From Wrist 29.5 cm Crease 30 cm From Wrist 32.2 cm Crease 35 cm From Wrist 34.4 cm Crease 40 cm From Wrist 36 cm Crease 45 cm From Wrist 35.8 cm Crease Elbow Joint 29.3 cm Lymphedema Treatment Manual Lymphatic Drainage Location R UE lymphedema all drains, highways ant and post and R UE ant and post Comments supine and sidelying also STM friction and rolling to pec and scar tissue R UE Lymphedema Wrapping Materials bandaging fingers, hand to axilla artiflex, 4 cm 6 cm and 10 cm Comprilan, pad for post hand into wrist area. Other lotion/Cetaphil applied prior fingers to near axilla R UE Sequential Lymphedema Exercises Location diaphragmatic breathing Duration X 15 for scap squeeze Comments Nustep x 10 min L2 to facilitate lymphatic flow Compression Garment Assessment Compression Garment good fit new glove and arm Assessment Details Other Other reports liked the use of chip bag Physical Therapy Assessment Goals Three Impairment impaired soft tissue mobility of mastectomy scar Detention Goal (LTG) Improve soft tissue mobility of scar tissue to improve lymphatic flow 04/04/25: have initiated scar mobilization with good tolerance, very adhered to chest wall 05/05/2025: noted area of density post to scar persists. 05/24/25: initiated use of suction tool to PT today due to persistent tightness 05/31/25: mild improvement, pt instructed in self massage including use of suction tools and demonstrates good understanding. LTG Duration goal progress Two Impairment lymphedema life impact scale 21% Detention Goal (LTG) Decrease lymphedema life impact scale to no greater than 5% as measure of improved activity tolerance and quality of life 04/04/25: decreased to 17% 05/05/2025 26/18 *25 =36.1% 05/24/25: 25% (largely due to difficulty with obtaining compression due to insurance issues) 05/31/25 LTG Duration goal met One Impairment lymphedema exacerbation right UE Short Term Goal (STG Patient will be instructed in all aspects of lymphedema ) self-care to include skin care, elevation, self- massage, self-bandaging/compression options, and lymphedema exercises. 04/04/25: goal met STG Duration goal met Pest Locator Goal (LTG) Decrease patient?s lymphedema to a stable level (no increase or decrease greater than 1 cm over the course of 1 week), patient to be independent with all aspects of self-care for lymphedema, and will obtain appropriate compression garment for lymphedema management in the home. 05/05/2025Decrease in all but 2 areas, but 4 areas did have changes greater than one cm. 05/24/25: circumferential measurements variable, most increased today, possibly due to 2 wks without PT, incorrect positioning of sequential pneumatic pump at home. Still working with Merna Story to obtain new compression garments, reports not able to bandage at home as well as PT. 05/31/25: goal met LTG Duration goal met Assessment Summary Assessment Pt. has met PT goals now that has new compression garments, fit well, noting decrease in circumferential measurements with wearing new garments. Independent with HEP, use of pump. Agreeable to discharge from PT today. Physical Therapy Plan Discharge Physical Therapy Discharge Reasons Goals Met Discharge Comments Has further potential for improved scar tissue mobility but patient has been instructed in self massage including use of therapeutic suction tool.
== END 2025-06-01 09:40 | disposition home or self-care (01) ==
LOC: PHYS 13:00
PROVIDERS: Family Provider Nurse Practitioner Primary Care; PCP Nurse Practitioner Primary Care; Referring Provider Nurse Practitioner Primary Care; Visit Provider Nurse Practitioner Primary Care
DX: I97.2 Postmastectomy lymphedema syndrome (principal)
CPT/HCPCS: 97016; 97110; 97140; 97162; 97530; 97535